=== PATIENT | female | born 1965 | race Two or more races ===

== ENCOUNTER 2016-07-02 23:27 | Emergency (ER) | payer SELFPAY ==
[~2016-07-02] VITALS: Ht 154.9 cm; Wt 97.5 kg
[2016-07-03] MEDS ORDERED: ALBUTEROL FS 2.5 MG/0.5 ML VIAL.NEB NEB ONE (00:30)
[2016-07-03] MEDS ORDERED: DEXAMETHASONE SOD PHOSPHATE 10 MG/ML VIAL IV ONE (00:30)
[2016-07-03] MEDS ORDERED: ALBUTEROL FS 2.5 MG/0.5 ML VIAL.NEB ONE (00:35)
[2016-07-03] MEDS ORDERED: DEXAMETHASONE SOD PHOSPHATE 10 MG/ML VIAL ONE (00:37)
[2016-07-03] MEDS ORDERED: ALBUTEROL FS 2.5 MG/3 ML VIAL.NEB NEB ONE (01:00)
[2016-07-03] MEDS ORDERED: ALBUTEROL FS 2.5 MG/3 ML VIAL.NEB ONE (01:01)
[2016-07-03 01:29] VITALS: BP 148/72
== END 2016-07-03 01:30 | disposition home or self-care (01) ==
LOC: ER 23:29
DX: J45.901 Unspecified asthma with (acute) exacerbation (principal); J06.9 Acute upper respiratory infection, unspecified; Z88.0 Allergy status to penicillin
CPT/HCPCS: 94640 ×3; 99285; A4606; J1100; Z7610

== ENCOUNTER 2020-01-19 11:45 | Emergency (ER) | payer OTHER ==
[~2020-01-19] VITALS: Ht 157.5 cm; Wt 74.4 kg
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
--- NOTE | 2020-01-19 11:57 | NUR ---
SEEN AND EXAMINED BY .
[2020-01-19] MEDS ORDERED: KETOROLAC TROMETHAMINE INJ 30 MG/ML VIAL ONE (12:04)
[2020-01-19] MEDS ORDERED: CYCLOBENZAPRINE 10 MG TABLET ONE (12:04)
--- NOTE | 2020-01-19 12:04 | NUR ---
PT IS WHEELED TO CT SCAN VIA [facility].
[2020-01-19] MEDS: KETOROLAC TROMETHAMINE INJ 30 MG/ML VIAL IM ONE (12:19)
[2020-01-19] MEDS: CYCLOBENZAPRINE 10 MG TABLET PO ONE (12:19)
--- NOTE | 2020-01-19 13:38 | NUR ---
Patient discharged to home in stable condition. Written and verbal after care instructions given. Patient verbalizes understanding of instruction.
[2020-01-19 13:39] VITALS: BP 120/73
== END 2020-01-19 13:39 | disposition home or self-care (01) ==
LOC: ER 11:48
DX: R07.89 Other chest pain (principal); R51 Headache; M54.2 Cervicalgia; M79.642 Pain in left hand; J45.909 Unspecified asthma, uncomplicated; Z88.0 Allergy status to penicillin; V49.59XA Passenger injured in collision with other motor vehicles in traffic accident, initial encounter; Y93.89 Activity, other specified; Y92.413 State road as the place of occurrence of the external cause; Y99.8 Other external cause status
CPT/HCPCS: 70450; 71045; 72125; 73130; 96372; 99285; J1885

== ENCOUNTER 2024-05-14 14:33 | Emergency (ER) | payer OTHER ==
[~2024-05-14] VITALS: Ht 154.9 cm; Wt 86.2 kg
[2024-05-14] MEDS ORDERED: diphenhydrAMINE HCL 50 MG/ML VIAL ONE (15:28)
[2024-05-14] MEDS ORDERED: PROCHLORPERAZINE EDISYLATE 10 MG/2 ML VIAL ONE (15:28)
[2024-05-14] MEDS ORDERED: ACETAMINOPHEN ES 500 MG TABLET ONE (15:29)
[2024-05-14] MEDS: diphenhydrAMINE HCL 50 MG/ML VIAL IV ONE (15:40)
[2024-05-14] MEDS: IV NS 0.9% 1,000 ML BAG IV ONE (15:40)
[2024-05-14] MEDS: ACETAMINOPHEN ES 500 MG TABLET PO ONE (16:00)
[2024-05-14 16:05] LABS: BASOPHILS # (AUTO) 0.1 K/uL (0.0-0.2); BASOPHILS % (AUTO) 1.1 % (0.0-2.0); EOSINOPHILS # (AUTO) 0.2 K/uL (0.0-0.7); EOSINOPHILS % (AUTO) 2.6 % (0.0-6.0); HEMATOCRIT 37 % (33-45); HEMOGLOBIN 12.6 g/dL (11.5-14.8); LYMPHOCYTES # (AUTO) 2.5 K/uL (0.8-4.8); LYMPHOCYTES % (AUTO) 32.8 % (20.0-44.0); MEAN CORPUSCULAR HEMOGLOBIN 31 PG (26.0-33.0); MEAN CORPUSCULAR HGB CONC 34 g/dl (31.0-36.0); MEAN CORPUSCULAR VOLUME 90 fL (82-100); MONOCYTES # (AUTO) 0.6 K/uL (0.1-1.30); MONOCYTES % (AUTO) 7.5 % (2.0-12.0); NEUTROPHILS # (AUTO) 4.4 K/uL (1.8-8.9); PLATELET COUNT (AUTO) 290 K/uL (150-450); RED CELL DISTRIBUTION WIDTH 14.2 % (11.5-15.0); WHITE BLOOD COUNT (AUTO) 7.8 K/uL (4.3-11.0)
[2024-05-14] MEDS: PROCHLORPERAZINE EDISYLATE 10 MG/2 ML VIAL IVP ONE (16:15)
[2024-05-14 16:46] LABS: CALCIUM, SERUM 8.8 mg/dL (8.5-10.1); CREATININE 0.6 mg/dL (0.6-1.3)
[2024-05-14] MEDS ORDERED: IBUP-1490 PO (17:17)
[2024-05-14 17:29] VITALS: BP 120/65; TEMP 97.5; O2SAT 91
== END 2024-05-14 17:30 | disposition home or self-care (01) ==
LOC: ER 14:36
DX: H02.402 Unspecified ptosis of left eyelid (principal); R22.0 Localized swelling, mass and lump, head; G44.209 Tension-type headache, unspecified, not intractable; J45.909 Unspecified asthma, uncomplicated; Z88.0 Allergy status to penicillin
CPT/HCPCS: 99285; 96374; 70450; 96361; 96375; 85025; 80048; 36415; J0780; J1200; J7030; A4223